=== PATIENT | male | born 1995 | race African-American/Black ===

== ENCOUNTER 2017-05-25 00:45 | Emergency (ER) | payer SELFPAY ==
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
[2017-05-25 02:04] LABS: BASO % 1 % (0-3); EOS # 0.1 x10^3/uL (0.0-0.7); EOS % 2 % (0-3); HEMATOCRIT 48.4 % (39.0-53.0); HEMOGLOBIN 16.1 g/dL (13.0-17.5); LYMPH # 1.1 x10^3/uL (1.0-4.8); LYMPH % 22 % (24-48); MEAN CORPUSCULAR HEMOGLOBIN 28 pg (25-35); MEAN CORPUSCULAR HGB CONC 33 g/dL (31-37); MEAN CORPUSCULAR VOLUME 85 fL (79-100); MONO # 0.5 x10^3/uL (0.0-1.1); MONO % 11 % (0-9); NEUT % 64 % (31-73); PLATELET COUNT 144 x10^3/uL (140-400); RED CELL DISTRIBUTION WIDTH 13.9 % (11.5-14.5); WHITE BLOOD COUNT 4.7 x10^3/uL (4.0-11.0)
[2017-05-25 02:07] LABS: BARBITURATES NEG (NEG); BENZODIAZEPINES NEG (NEG); CANNABINOIDS POS (NEG); COCAINE NEG (NEG); METHADONE NEG (NEG); OPIATES NEG (NEG); PHENCYCLIDINE NEG (NEG)
[2017-05-25 02:10] LABS: ALBUMIN/GLOBULIN RATIO 1.1 (1.0-1.7); CALCIUM 9.1 mg/dL (8.5-10.1); CREATININE 1.4 mg/dL (0.7-1.3); GFR 64.6; TOTAL BILIRUBIN 0.8 mg/dL (0.2-1.0); TOTAL PROTEIN 7.8 g/dL (6.4-8.2)
[2017-05-25 02:18] LABS: AMPHETAMINE/METHAMPHETAMINE NEG (NEG)
[2017-05-25 02:22] LABS: CLARITY,URINE CLEAR; COLOR,URINE YELLOW
[2017-05-25 02:24] LABS: BACTERIA,URINE 0 /HPF (0-FEW); BILIRUBIN,URINE NEG (NEG); GLUCOSE,URINE NEG (NEG); NITRITE,URINE NEG (NEG); RBC,URINE 0 /HPF (0-2); SQUAMOUS EPITHELIAL CELL,UR OCC /LPF; UROBILINOGEN,URINE 1 mg/dL (0.2 mg/dL); WBC,URINE RARE /HPF (0-4)
[2017-05-25 02:51] VITALS: BP 122/70
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
== END 2017-05-25 03:07 | disposition home or self-care (01) ==
LOC: ER 00:45
DX: R07.89 Other chest pain (principal); R51 Headache; Y08.89XA Assault by other specified means, initial encounter; Y93.89 Activity, other specified; Y99.8 Other external cause status; Y92.89 Other specified places as the place of occurrence of the external cause
CPT/HCPCS: 36415; 70450; 71020; 80053; 80307; 81001; 85025; 99285-25; G0479

== ENCOUNTER 2018-09-19 18:30 | Emergency (ER) | payer SELFPAY ==
[~2018-09-19] VITALS: Ht 177.8 cm; Wt 68.0 kg
[2018-09-19 18:45] VITALS: BP 136/72
[2018-09-19] MEDS ORDERED: SULF1TAB24 PO (19:02)
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
[2018-09-19] MEDS ORDERED: SMZ/TMP 800/160MG TABLET. PO ONE (19:15)
== END 2018-09-19 19:13 | disposition home or self-care (01) ==
LOC: ER 18:30
DX: L03.115 Cellulitis of right lower limb (principal); Z59.0 Homelessness
CPT/HCPCS: 87070; 99283

== ENCOUNTER 2019-04-14 15:55 | Emergency (ER) | payer OTHER ==
[~2019-04-14] VITALS: Ht 175.3 cm; Wt 64.0 kg
[~2019-04-14 15:55] MED LIST: SULF1TAB24 PO
[2019-04-14] MEDS ORDERED: CLINDAMYCIN HCL 150 MG CAPSULE PO ONE (16:15)
[2019-04-14] MEDS ORDERED: LIDOCAINE 2%/EPI 1:100,000 20 ML VIAL. IJ ONE (16:15)
[2019-04-14] MEDS ORDERED: CLIN300C8 PO (16:29)
[2019-04-14] MEDS ORDERED: DIPHTH,PERTUSS(ACELL),TET TOX 0.5 ML DISP.SYRIN. VAX IM ONE (16:30)
--- NOTE | 2019-04-14 16:30 | PHYS DOC ---
Past History Past Medical History: Anxiety, Depression, Other Past Surgical History: No Surgical History Smoking: Cigarettes, Less than 1pk/day Alcohol Use: Occasionally Drug Use: None, Marijuana Adult General Chief Complaint Chief Complaint: ABSCESS HPI HPI Mr. Martin is a 23yo AAM presents w/ left upper medial gluteal abscess. He first noticed it 5 days ago and has grown in size. Causes pain when sitting or laying in bed. Was able to drain the abscess at home to a limited extent. Review of Systems Review of Systems Constitutional: Denies fever or chills Eyes: Denies redness or eye pain HENT: Denies nasal congestion or sore throat Respiratory: Denies cough or shortness of breath Cardiovascular: Denies chest pain or palpitations GI: Denies abdominal pain, nausea, or vomiting : Denies dysuria or hematuria Musculoskeletal: Denies back pain or joint pain Integument: Reports left gluteal abscess. Denies any other abscesses or skin complaints. Neurologic: Denies headache, focal weakness or sensory changes Complete systems were reviewed and found to be within normal limits, except as documented in this note. Current Medications Current Medications Current Medications Medications (Trade) Dose Ordered Sig/Mary Start Time Stop Time Status Last Admin Dose Admin Clindamycin HCl (Cleocin) 300 mg 1X ONCE 04/14/19 16:15 04/14/19 16:16 DC Diphtheria/ Tetanus/Acell Pertussis (Boostrix) 0.5 ml ONCE ONCE 04/14/19 16:30 04/14/19 16:31 Lidocaine/ Epinephrine (Xylocaine 2%-Epi 1:100,000) 20 ml 1X ONCE 04/14/19 16:15 04/14/19 16:16 DC Allergies Allergies Allergies Coded Allergies Type Severity Reaction Last Updated Verified I S O L A T I O N *CONTACT* Allergy Unknown 09/24/18 Yes NKMA Allergy Unknown 09/24/18 Yes Physical Exam Physical Exam Constitutional: Well developed, well nourished, no acute distress, non-toxic appearance HENT: Normocephalic, atraumatic, oropharynx moist Eyes: PERRL, EOMI, conjunctiva normal, no discharge Neck: Normal range of motion, no tenderness, supple Cardiovascular: Heart rate normal, regular rhythm Lungs & Thorax: Bilateral breath sounds clear to auscultation, no wheezing Abdomen: Soft, no tenderness Skin: Warm, dry, no erythema, no rash, left gluteal abscess w/ ulceration Back: No tenderness, no CVA tenderness Extremities: No tenderness, ROM intact, no edema Neurologic: Alert and oriented X 3, normal motor function, normal sensory function, no focal deficits noted Psychologic: Affect normal, judgement normal, mood normal EKG EKG [] Radiology/Procedures Radiology/Procedures [] Course & Med Decision Making Course & Med Decision Making Patient presented w/ left gluteal abscess. Area was prepped, sterilized, and numbed using lidocaine. Single incision w/ drainage; irrigated with NS; packed and dressed. Patient administered antibiotic and counseled to remove packing in 1-2 days. Patient stable for discharge with outpatient follow-up with PCP. Dis cussed findings and plan with patient and family, who acknowledge understanding and agreement. Dragon Disclaimer Dragon Disclaimer This electronic medical record was generated, in whole or in part, using a voice recognition dictation system. Departure Departure: Impression: Primary Impression: Abscess Disposition: 01 HOME, SELF-CARE Condition: STABLE Referrals: PCP,NO (PCP) Patient Instructions: Abscess, [id number] Additional Instructions: Do not soak your wound. You may shower. Clean wound daily with soap and water. Change dressing 2 times daily. Use over the counter antibiotic ointment with each dressing change. Use over the counter Tylenol and Ibuprofen for pain or discomfort. Scripts Clindamycin Hcl (CLINDAMYCIN HCL) 300 Mg Capsule 1 CAP PO TID for infection, #21 CAP Prov: TULIO العلي DO 04/14/19 TULIO العلي DO Apr 14, 2019 16:30
[2019-04-14] MEDS ORDERED: NEOMY/BACITR/POLYMYXIN OINT PACKET. TP ONE (16:45)
[2019-04-14 16:55] VITALS: BP 114/69
== END 2019-04-14 16:50 | disposition home or self-care (01) ==
LOC: ER 15:55
DX: L02.31 Cutaneous abscess of buttock (principal); F17.210 Nicotine dependence, cigarettes, uncomplicated; Z91.041 Radiographic dye allergy status
CPT/HCPCS: 10060; 90471; 90715; 99283-25